=== PATIENT | male | born 1990 | race Caucasian/White ===

== ENCOUNTER 2020-01-17 10:19 | Emergency (ER) | payer MEDICAID ==
[~2020-01-17] VITALS: Ht 177.8 cm; Wt 90.7 kg
[2020-01-17 10:20] VITALS: BP_SYST 132
--- NOTE | 2020-01-17 10:20 | NUR ---
BROUGHT BACK TO BED #5 AND TRIAGED. REPORT GIVEN TO DYLON
--- NOTE | 2020-01-17 10:30 | NUR ---
Pt walked in to ER with c/o abdominal pain and diarrhea x5 days. V/S stable, pt is afebrile. Currently sitting at bedside, will continue to monitor.
--- NOTE | 2020-01-17 11:00 | NUR ---
ER Dr. Hein at bedside examining patient.
--- NOTE | 2020-01-17 11:08 | NUR ---
Nasal swab obtained to r/o covid. Sample sent to lab, pt tolerated well.
[2020-01-17] MEDS ORDERED: DIPHENOXYLATE HCL/ATROP SULF 2.5 MG TAB PO ONE (11:15)
[2020-01-17 11:25] VITALS: BP_SYST 132
--- NOTE | 2020-01-17 11:25 | NUR ---
Patient given written and verbal discharge instructions and verbalizes understanding. ER MD discussed with patient the results and treatment provided. Patient in stable condition. ID arm band removed. Rx of Lomotil and Bactrim given. Patient educated on pain management and to follow up with PMD. Pain Scale 0. Opportunity for questions provided and answered. Medication side effect fact sheet provided.
== END 2020-01-17 11:25 | disposition home or self-care (01) ==
LOC: SED 10:19
DX: A08.4 Viral intestinal infection, unspecified (principal); Z20.828 Contact with and (suspected) exposure to other viral communicable diseases
CPT/HCPCS: 99283; C9803; U0003